=== PATIENT | female | born 1970 | race Caucasian/White ===

== ENCOUNTER → 2016-12-01 09:28 | Outpatient (CLI) | payer OTHER ==
[~2016-12-01 09:28] MED LIST: ASMANEX0.135 GM INH; CYMBALTA60 MG PO; HYDROCODON-ACE1 EAC7 PO; PROBIOTIC1 EAC1 PO
[2017-01-31 08:46] VITALS: BMI 26.6
== END | disposition home or self-care (01) ==
LOC: D.US 09:28
DX: R10.11 Right upper quadrant pain (principal)

== ENCOUNTER → 2016-12-03 08:12 | Outpatient (CLI) | payer OTHER ==
[2017-01-31 08:46] VITALS: BMI 26.6
== END | disposition home or self-care (01) ==
LOC: D.US 08:00
DX: R10.11 Right upper quadrant pain (principal)

== ENCOUNTER → 2016-12-10 17:28 | Outpatient (CLI) | payer OTHER ==
[2017-01-31 08:46] VITALS: BMI 26.6
== END | disposition home or self-care (01) ==
LOC: D.LABREF 17:28
DX: N18.1 Chronic kidney disease, stage 1 (principal); R05 Cough

== ENCOUNTER → 2017-01-04 07:46 | Outpatient (CLI) | payer OTHER ==
[2017-01-31 08:46] VITALS: BMI 26.6
== END | disposition home or self-care (01) ==
LOC: D.CT 07:46
DX: N20.0 Calculus of kidney (principal)

== ENCOUNTER → 2017-01-07 08:06 | Outpatient (CLI) | payer OTHER ==
[2017-01-31 08:46] VITALS: BMI 26.6
== END | disposition home or self-care (01) ==
LOC: D.NM 08:00
DX: R10.11 Right upper quadrant pain (principal)

== ENCOUNTER 2017-01-31 05:08 | Day surgery (SDC) | payer OTHER ==
[2017-01-28 11:35] LABS: HEMATOCRIT 43.3 % (36.0-48.0); HEMOGLOBIN 14.4 g/dL (12-16); MCH 29.2 pg (26.0-34.0); MCHC 33.3 g/dL (31.0-37.0); MCV 87.8 fL (80.0-100.0); MEAN PLATELET VOLUME 10.2 fL (7.4-10.4); RBC 4.93 10x6/uL (4.00-5.40); RDW 12.9 % (11.5-14.5); WBC 6.8 10x3/uL (4.8-10.8)
[~2017-01-31] VITALS: Ht 157.5 cm; Wt 65.8 kg
[~2017-01-31 05:08] MED LIST changes: -ASMANEX0.135 GM INH; -HYDROCODON-ACE1 EAC7 PO; -PROBIOTIC1 EAC1 PO
[2017-01-31] MEDS ORDERED: PROBIOTIC1 EAC1 PO (08:45)
[2017-01-31] MEDS ORDERED: ASMANEX0.135 GM INH (08:45)
[2017-01-31 08:46] VITALS: BP 94/62; Ht 157.5 cm; Wt 65.8 kg
[2017-01-31 09:02] LABS: HCG URINE NEGATIVE (NEGATIVE)
[2017-01-31] MEDS ORDERED: HYDROCODON-ACE1 EAC7 PO (11:40)
--- NOTE | 2017-01-31 15:03 | NUR ---
1225- RECEIVED PT FROM PACU AWAKE AND ALERT. VSS NO DISTRESS. STERI STIPS CDI WITHOUT ANY DRAINAGE NOTED. FAMILY AT BEDSIDE PT DENIES ANY N/V WATER GIVEN 1255-PT CONTINUES TO DO WELL 1325-PT UP TO BATHROOM AND VOIDED IV DISCONTINUED WITH CATHETER INTACT 1335-DISCHARGE INSTRUCTIONS GIVEN AND WENT OVER WITH PATIENT. PT STATES UNDERSTANDING AND DENIES ANY NEEDS OR CONCERNS AT THIS TIME. COPY HANDED TO PT WITH A FOLLOW UP APPOINTMENT MADE PT ESCORTED OUT VIA WHEELCHAIR IN STABLE CONDITION
--- NOTE | 2017-02-01 09:15 | OP ---
PATIENT NAME: GLORIA HAQ MEDICAL RECORD: [id number] :68 LOCATION:[facility] ADMISSION DATE: SURGEON: CARLOS TORRES MD DATE OF OPERATION: 01/31/2017 SURGEON: Carlos Torres M.D. PREOPERATIVE DIAGNOSES: 1. Biliary dyskinesia. 2. Right upper quadrant pain. POSTOPERATIVE DIAGNOSES: 1. Biliary dyskinesia. 2. Right upper quadrant pain. PROCEDURE PERFORMED: Laparoscopic cholecystectomy. ANESTHESIA: General. COMPLICATIONS: None. SPECIMENS: Gallbladder. Case was clean contaminated. ESTIMATED BLOOD LOSS: 15 cc. OPERATIVE COURSE: After consent was obtained, the patient was taken to the operating room and placed in supine position on the operating table. Next, general anesthesia was given via endotracheal intubation after a timeout was taken to confirm the correct patient and procedure. The abdomen was prepped and draped in typical sterile fashion. Local anesthetic was injected just above the umbilicus. A stab incision was made with an 11-blade scalpel. Using a 5-mm bladeless optical trocar, the abdomen was entered under direct laparoscopic vision. Adequate pneumoperitoneum was achieved. The abdominal cavity was inspected. No evidence of bowel injury. No evidence of bleeding. The patient was then placed in the steep reverse Trendelenburg position. At this time, all remaining trocars were placed after the administration of local anesthetic under direct laparoscopic vision, two 5-mm trocars in the right upper quadrant and 11-mm trocar in the subxiphoid position. The fundus of the gallbladder was grasped and retracted cephalad. The infundibulum was grasped and retracted laterally. The peritoneum was incised using electrocautery. Blunt dissection was then performed with a [place] a sector until the critical view was obtained, the cystic duct lateral, cystic artery medial. Pictures of the critical view were obtained. Three clips were placed in the proximal cystic duct, 1 clip distal, 2 clips were placed in the proximal cystic artery. The duct and artery were then transected with laparoscopic Metzenbaum scissors. The remaining portion of the gallbladder was dissected off the liver bed using electrocautery. Once complete, it was grasped with the tenaculum and removed through the 11-mm trocar and sent for permanent pathology. The operative site was then copiously irrigated and suctioned. Careful attention was paid to hemostasis, which was obtained in the liver bed using electrocautery. The clips were inspected, there were [address] in the cystic duct, there were [address] in the cystic artery. At this time, the abdominal cavity was inspected. There was no evidence of bowel injury. No evidence of bleeding. No OPERATIVE REPORT [id number] GLORIA HAQ evidence of bile leak. Next, all remaining instruments removed. The abdomen was desufflated. Trocars were removed. Skin was closed with 4-0 Monocryl, Mastisol, and Steri-Strips. At the end of the case, all needle and instrument counts were correct. No complications occurred. The patient was extubated and transferred to the PACU in stable condition. TRANSINT:[id number] Voice Confirmation ID: [id number] DOCUMENT ID: [id number] CARLOS TORRES MD at 0915 CC: [id number] DICTATION DATE: 01/31/17 1139 [facility]: 01/31/17 1535 [facility] 01/31/[address] [id number]
== END 2017-01-31 13:35 | disposition home or self-care (01) ==
LOC: D.OPS 05:08 → D.PAN 09:30 → D.OPS 09:30
PROVIDERS: Anesthesiology; Surgery
DX: K82.8 Other specified diseases of gallbladder (principal); K80.20 Calculus of gallbladder without cholecystitis without obstruction